=== PATIENT | female | born 1995 | race Caucasian/White ===

== ENCOUNTER 2021-07-06 08:21 | Emergency (ER) | payer BC, OTHER ==
[~2021-07-06] VITALS: Ht 172.7 cm; Wt 111.1 kg
--- NOTE | 2021-07-06 10:29 | NUR ---
Patient discharged to home in stable condition. Written and verbal after care instructions given. Patient verbalizes understanding of instructions. Stressed follow up or return to ER for worsening s/s.
[2021-07-06 10:30] VITALS: BP 135/78
== END 2021-07-06 10:30 | disposition home or self-care (01) ==
LOC: ER 08:21
DX: U07.1 COVID-19 (principal); J02.8 Acute pharyngitis due to other specified organisms; Z88.0 Allergy status to penicillin
CPT/HCPCS: 71045; A4663